=== PATIENT | male | born 1955 | race Caucasian/White ===

== ENCOUNTER → 2016-06-25 | Outpatient (CLI) | payer OTHER ==
[~2016-06-25] MED LIST: AMARYL4 MG PO; ASPIRIN325 MG PO; CREON 121 CAP PO; GLUCOPHAGE1000 MG PO; LANOXIN (DIGI250 MCG PO; LANTUS (IN100 UNIT/M SUB-Q; LIPITOR40 MG PO; LOPRESSOR100 MG PO; PRILOSEC20 MG PO; TRICOR145 MG PO; ZESTRIL2.5 MG PO
== END | disposition disaster alternative care site (69) ==
LOC: GRAD 16:11
DX: R10.9 Unspecified abdominal pain (principal); K59.00 Constipation, unspecified; K76.0 Fatty (change of) liver, not elsewhere classified; K86.1 Other chronic pancreatitis
CPT/HCPCS: Q9967